=== PATIENT | female | born 1935 | race African-American/Black ===

== ENCOUNTER 2022-10-07 08:46 | Emergency (ER) | payer OTHER ==
[~2022-10-07] VITALS: Ht 167.6 cm; Wt 86.0 kg
[2022-10-07 08:53] VITALS: O2SAT 100
[2022-10-07] MEDS ORDERED: LABETALOL 5MG/ML SYR 20 MG/4 ML SYRINGE IV ONE ×2 (09:30→12:00)
[2022-10-07 09:47] LABS: MEAN CORPUSCULAR VOLUME 75.2 fL (81.0-99.0)
[2022-10-07 09:49] LABS: HEMATOCRIT. 48.3 % (36.0-48.0); HEMOGLOBIN. 15.6 g/dL (12.0-16.0); MEAN CORPUSCULAR HEMOGLOBIN 24.3 pg (28.0-32.0); MEAN CORPUSCULAR HGB CONC 32.3 g/dL (31.0-37.0); RED BLOOD CELL COUNT 6.42 mill/uL (4.2-5.4); RED CELL DISTRIBUTION WIDTH 15.8 % (11.6-14.6)
[2022-10-07 09:56] LABS: INR 1.1; PROTHROMBIN TIME 11.7 sec (9.6-11.0)
[2022-10-07 10:08] LABS: DIFFERENTIAL COMMENT 1
[2022-10-07 10:13] LABS: CHLORIDE 103 mEq/L (98-107); INDEX HEMOLYSI 2 (1-3); INDEX ICTERIC 1 (1-4); INDEX LIPEMIC 1 (1-3); POTASSIUM 3.2 mEq/L (3.5-5.1); SODIUM 136 mEq/L (136-145)
[2022-10-07 10:26] LABS: ALANINE AMINOTRANSFERASE 22 IU/L (13-61); ALBUMIN 3.8 g/dL (3.4-5.0); ASPARTATE AMINOTRANSFERASE 19 IU/L (15-37); BILIRUBIN TOTAL 1.1 mg/dL (0.1-1.0); CALCIUM 9.5 mg/dL (8.5-10.1); CARBON DIOXIDE 26 mEq/L (21-32); CREATININE 0.7 mg/dL (0.6-1.3); GLUCOSE 180 mg/dL (70-105); PROTEIN TOTAL 7.7 g/dL (6.0-8.3); UREA NITROGEN BLOOD 14 mg/dL (7-21)
[2022-10-07 10:32] LABS: TROPONIN I HIGH SENSITIVITY 55 ng/L (<54)
[2022-10-07 10:59] LABS: PLATELET 224 x1000/uL (130-400)
[2022-10-07 11:00] LABS: PLATELET ESTIMATE NORMAL
[2022-10-07 11:59] LABS: CLARITY URINE CLEAR (CLEAR); COLOR URINE YELLOW (YELLOW); GLUCOSE URINE NEGATIVE (NEGATIVE); KETONES URINE NEGATIVE (NEGATIVE); LEUKOCYTE ESTERASE URINE NEGATIVE (NEGATIVE); NITRITE URINE NEGATIVE (NEGATIVE); OCCULT BLOOD URINE 1+ (NEGATIVE); PH URINE 5.5 (4.5-8.0); PROTEIN URINE 3+ (NEGATIVE); SPECIFIC GRAVITY URINE 1.008 (1.005-1.030); UROBILINOGEN URINE 0.2 E.U./dL (0.2-1.0)
[2022-10-07 12:02] LABS: SQUAMOUS EPITHELIAL CELL URINE NONE SEEN /lpf (RARE/1+); YEAST URINE NONE SEEN
[2022-10-07] MEDS ORDERED: ASPIRIN 81MG TABLET PO ONE (12:15)
[2022-10-07 12:19] LABS: BACTERIA URINE FEW; RBC URINE NONE SEEN /hpf (0-2)
[2022-10-07 14:10] VITALS: BP 129/63; PULSE 66; RESP 19; TEMP 97.8
== END 2022-10-07 14:39 ==
LOC: ER 09:10
DX: I16.1 Hypertensive emergency (principal); I48.91 Unspecified atrial fibrillation
CPT/HCPCS: 99291; 96374; 70450; 80053; 81003; 85025; 85610; 84484; 36415; 71045; 93005; 96376; J3490